=== PATIENT | male | born 1995 | race Caucasian/White ===

== ENCOUNTER 2025-02-21 10:41 | Emergency (ER) | payer BC, MEDICAID, SELFPAY ==
[2025-02-21 10:44] VITALS: BP 124/83; PULSE 68; RESP 16; TEMP 36.4; O2SAT 99; BMI 20.2
--- NOTE | 2025-02-21 10:58 | USR_ITS ---
PROCEDURE INFORMATION: Exam: US Right Limited Joint or Other Non-Vascular Extremity Structure Exam date and time: 02/21/2025 11:35 AM Age: 29 years old Clinical indication: Mass or lump; Other: RT inguinal canal; Additional info: Right groin node TECHNIQUE: Imaging protocol: US right limited joint or other nonvascular extremity structure. Real-time ultrasound with image documentation. Exam focused on the area of clinical interest. COMPARISON: No relevant prior studies available. FINDINGS: Soft tissues: Unremarkable. No loculated collections. Other findings: Examination of the right inguinal region demonstrates multiple subcutaneous lymph nodes. The largest node measures 2.5 cm in diameter and is hyperemic. No other mass or fluid collection noted. US/US soft tissue/extremity 25897 IMPRESSION: Enlarged, hyperemic lymph nodes, most likely reactive
--- NOTE | 2025-02-21 11:02 | ED_ITS ---
HPI - Skin/Abscess/Foreign Bdy General: Chief complaint: Skin/Abscess/Foreign Body Stated complaint: lump right side thigh area Time Seen by Provider: 02/21/25 10:51 Source: patient Mode of arrival: ambulatory Limitations: no limitations History of Present Illness: 29-year-old male states he was doing his heavy lifting last week and started having some pain in his right groin since then. He states that he has noticed a small lump in the groin is very tender to touch denies any testicle pain he denies any dysuria or penile discharge. Denies any vomiting or diarrhea Related Data Allergies Allergy/AdvReac Type Severity Reaction Status Date / Time No Known Allergies Allergy Verified 02/21/25 10:49 Physical Exam Const: COMMON NORMALS: no acute distress, patient oriented x3 and healthy appearing HENMT: COMMON NORMALS: normocephalic and atraumatic HEAD & SCALP: normocephalic and atraumatic Eye: COMMON NORMALS: conjunctivae normal CONJUNCTIVA: Yes conjunctivae normal Neck/C-Spine: COMMON NORMALS: full ROM and supple Chest: COMMONS NORMALS: normal inspection of the chest Resp: COMMON NORMALS: normal respiratory effort Cardio: COMMON NORMALS: regular rate, regular rhythm and No murmurs present (Cardio) RATE: regular rate RHYTHM: regular rhythm GI: COMMON NORMALS: Normal to inspection, nondistended, normoactive bowel sounds present, Soft to palpation, non-tender and no masses PALPATION: Yes Soft to palpation OTHER: No tenderness to testicles does have a normal size lump in right groin that is tender to touch does not feel like a hernia no erythema or signs of abscess Extremity: COMMON NORMALS: normal to inspection and full ROM Neuro: COMMON NORMALS: patient oriented x3, moves all extremities and no focal motor deficits Psych: COMMON NORMALS: mental status grossly normal, Normal thought process present and cooperative THOUGHT PROCESS: Normal thought process present Skin: COMMON NORMALS: no rashes or lesions noted and no wounds GENERAL SKIN EXAM: no rashes or lesions noted Course Vital Signs: Vital signs: Vital Signs Temperature 97.6 F 02/21/25 10:44 Pulse Rate 68 02/21/25 10:44 Respiratory Rate 16 02/21/25 10:44 Blood Pressure 124/83 02/21/25 10:44 Pulse Oximetry 99 02/21/25 10:44 Oxygen Delivery Me thod Room Air 02/21/25 10:44 MDM - Skin/Abscess/Foreign Bdy Medicial Decision Making Patient presents with right groin pain along with a palpable lymph node. Differential included inguinal hernia which is ruled out with formal ultrasound no signs of hernia. Ultrasound did confirm that it is a lymph node he has no testicle pain he denies any dysuria or penile discharge no signs of STD will send off a urine for gonorrhea and chlamydia though. Patient is to take Motrin Tylenol he stable for discharge he is return if he is worsening he understands agrees to plan I did go over the ultrasound results with him. The ultrasound result was given to me by the injection molding process technician formal report is still pending Medical Records I reviewed the patient's medical records. XR interpretation done by ED provider, pending radiology final review Discharge Plan Discharge Patient Disposition: Home Clinical Impression: Lymphadenopathy Condition: Stable Discharge Orders: Discharge ED (Routine); Ordered 02/21/25 Ordered By: Jyoti Quan Discharge Diet: Advance as tolerated Discharge Activity: Resume usual activity Patient Instructions: Lymphadenopathy (ED) Print Language: [place]ijani Coding Level of Care Code ED Second Vp Hr Assessment for Makeda Roman
--- NOTE | 2025-02-21 11:09 | PC.NURSE ---
Pt voices that he is driving home, hydro/apap not given at this time.
[2025-02-21 12:28] VITALS: BP 117/79; PULSE 66; O2SAT 99
[2025-02-21 13:54] LABS: Neisseria Gonorrhea NOT DETECTED (Negative)
== END 2025-02-21 12:28 | disposition home or self-care (01) ==
PROVIDERS: Emergency Provider Emergency Medicine
DX: R59.1 Generalized enlarged lymph nodes (principal)
CPT/HCPCS: 76882; 87491; 87591; 99284

== ENCOUNTER → 2025-05-05 11:15 | Outpatient (BNVA) | payer BC, MEDICAID, SELFPAY | PROVIDERS: Visit Provider Surgery | DX: R59.1 Generalized enlarged lymph nodes (principal); L02.214 Cutaneous abscess of groin | CPT/HCPCS: 87070; 87075; 87205 ==